=== PATIENT | male | born 2000 | race Caucasian/White ===

== ENCOUNTER 2025-05-04 14:58 | Emergency (ER) | payer OTHER ==
[~2025-05-04] VITALS: Ht 177.8 cm; Wt 68.0 kg
[2025-05-04] MEDS ORDERED: Ipratropium/Albuterol SulF 2.5-0.5MG/3 ML Amp INH ONE (15:15)
[2025-05-04] MEDS ORDERED: ALBU90OI INH (15:42)
[2025-05-04] MEDS ORDERED: Zithromax250 MG PO (15:42)
== END 2025-05-04 15:47 | disposition home or self-care (01) ==
LOC: ER 14:58
DX: J18.9 Pneumonia, unspecified organism (principal); F17.200 Nicotine dependence, unspecified, uncomplicated
CPT/HCPCS: 71046; 99284-25